=== PATIENT | female | born 1950 | race Caucasian/White ===

== ENCOUNTER 2020-07-02 14:32 | Outpatient (CLI) | payer MEDICARE, MEDICAID ==
[~2020-07-02 14:32] MED LIST: CARI350T PO; CLOB30CR12 TP; CLON-527 PO; CLON-529 PO; DESV50TA PO; DIPH-186 PO; NYST30CR2 TP; OMEP-84 PO; PER10325T PO; PROM12.512 PO; SUCR1TAB34 PO; TRAZ-91 PO
== END 2020-07-02 23:59 | disposition home or self-care (01) ==
LOC: RAD 14:32
PROVIDERS: ATTEND General Practice
DX: K21.9 Gastro-esophageal reflux disease without esophagitis (principal); R13.14 Dysphagia, pharyngoesophageal phase
CPT/HCPCS: 74230